=== PATIENT | male | born 1965 | race Caucasian/White ===

== ENCOUNTER 2017-10-19 19:45 | Emergency (ER) | payer OTHER ==
[2017-10-19] MEDS ORDERED: IBUPROFEN 200 MG TABLET PO ONE (19:58)
[2017-10-19] MEDS ORDERED: ACETAMINOPHEN 500 MG TABLET PO ONE (19:58)
--- NOTE | 2017-10-19 20:01 | Emergency Department Record ---
History of Present Illness - General Chief complaint: Flu Like Symptoms Stated complaint: COUGH,ACHES,SORE THROAT Time Seen by Provider: 10/19/17 19:56 Source: Patient Mode of Arrival: Ambulatory Limitations: No limitations - History of Present Illness Initial comments: 52 yo male presents to ED for evaluation of fever, sore throat, and body aches for the past 2 days. Patient denies productive cough symptoms, neck stiffness, nausea, vomiting, or abdominal pain symptoms. Patient denies urinary symptoms. Patient also denies health problems at his baseline. Patient did take Advil cold and sinus early this morning. MD Complaint: Generalized weakness Onset/Timin -: Days(s) Location: Generalized Severity: Mild Quality: Aching Consistency: Constant Improves with: None Worsens with: None - Delight Coma Scale Eye Response: (4) Open spontaneously Motor Response: (6) Obeys commands Verbal Response: (5) Oriented Alisha Total: 15 - Related Data Previous Rx's Medication Instructions Recorded Oseltamivir Phosphate [Tamiflu] 75 mg PO BID #10 capsule 10/19/17 Oseltamivir Phosphate [Tamiflu] 75 mg PO BID #10 capsule 10/19/17 Allergies Allergy/AdvReac Type Severity Reaction Status Date / Time cefuroxime [From Ceftin] Allergy RASH Verified 10/19/17 19:54 Travel Screening - Travel/Exposure Within Last 30 Days Have you traveled within the last 30 days?: No - Travel/Exposure Within Last Year Have you traveled outside the [place] in the last year?: No - Additonal Travel Details Have you been exposed to anyone with a communicable illness?: No - Travel Symptoms Symptom Screening: None Review of Systems Constitutional: Reports: Chills, Fever, Malaise, Weakness. Denies: Night sweats Eyes: Denies: Eye discharge, Eye pain ENT: Reports: Congestion, Throat pain. Denies: Ear pain, Epistaxis Respiratory: Denies: Cough Cardiovascular: Denies: Chest pain, Dyspnea on exertion Endocrine: Denies: Fatigue, Heat or cold intolerance Gastrointestinal: Denies: Abdominal pain, Nausea, Vomiting Genitourinary: Denies: Incontinence, Retention Musculoskeletal: Reports: Myalgia. Denies: Arthralgia, Back pain Skin: Denies: Bruising, Change in color Neurological: Reports: Headache. Denies: Abnormal gait, Confusion, Seizure Psychiatric: Denies: Anxiety Hematological/Lymphatic: Denies: Anemia, Blood Clots Past Medical History - SOCIAL HISTORY Smoking Status: Never smoker Alcohol Use: None Drug Use: None - RESPIRATORY Hx Respiratory Disorders: No - CARDIOVASCULAR Hx Cardio Disorders: No - NEURO Hx Neuro Disorders: No - GI Hx GI Disorders: No - Hx Genitourinary Disorders: No - ENDOCRINE Hx Endocrine Disorders: No - MUSCULOSKELETAL Hx Musculoskeletal Disorders: No - PSYCH Hx Psych Problems: No - HEMATOLOGY/ONCOLOGY Hx Hematology/Oncology Disorders: No Family Medical History Any Significant Family History?: No Physical Exam - General General Appearance: Alert, Oriented x3, Cooperative, Moderate distress Limitations: No limitations - Head Head exam: Atraumatic, Normocephalic, Normal inspection Head exam detail: negative: Abrasion, Contusion, Porras's sign, General tenderness, Hematoma, Laceration - Eye Eye exam: Normal appearance. negative: Conjunctival injection, Periorbital swelling, Periorbital tenderness, Scleral icterus - ENT Ear exam: negative: Auricular hematoma, Auricular trauma Nasal Exam: negative: Active bleeding, Discharge, Dried blood, Foreign body Mouth exam: negative: Drooling, Laceration, Tongue elevation - Neck Neck exam: Normal inspection. negative: Meningismus, Tenderness - Respiratory Respiratory exam: Normal lung sounds bilaterally. negative: Rales, Respiratory distress, Rhonchi, Stridor - Cardiovascular Cardiovascular Exam: Regular rate, Normal rhythm, Normal heart sounds - GI/Abdominal GI/Abdominal exam: Soft. negative: Rebound, Rigid, Tenderness - Rectal Rectal exam: Deferred - exam: Deferred - Extremities Extremities exam: Normal inspection. negative: Pedal edema, Tenderness - Back Back exam: Denies: CVA tenderness (R), CVA tenderness (L) - Neurological Neurological exam: Alert, Normal gait, Oriented X3 - Psychiatric Psychiatric exam: Normal affect, Normal mood - Skin Skin exam: Normal color. negative: Abrasion Type of lesion: negative: abrasion Course Vital Signs 10/19/17 19:50 Temperature 100.2 F H Pulse Rate 97 H Respiratory 20 Rate Blood Pressure 133/84 Pulse Ox 96 - Reevaluation(s) Reevaluation #1: 10/19/17 20:10 Influenza B: Positive Strep: negative Patient was updated on his result, will initiate treatment with Tamiflu with instructions for follow-up with his PCP in 3-5 days. Disposition Disposition: Discharge Clinical Impression: Influenza B Disposition: Home, Self-Care Condition: (2) Stable Instructions: Influenza (ED) Additional Instructions: Return to ED if your symptoms worsen or if you have any concerns. Tamiflu as directed. Follow-up with your four family doctor in 3-5 days as directed. Prescriptions: Oseltamivir Phosphate [Tamiflu] 75 mg PO BID #10 capsule Oseltamivir Phosphate [Tamiflu] 75 mg PO BID #10 capsule Forms: Patient Portal Access Time of Disposition: 20:13 Quality - Quality Measures Quality Measures: N/A - Blood Pressure Screening Does Patient Have Any of the Following: No Blood Pressure Classification: Pre-Hypertensive BP Reading Systolic Measurement: 133 Diastolic Measurement: 84 Screening for High Blood Pressure: < Pre-Hypertensive BP, F/U Documented > [ [id number]] Pre-Hypertensive Follow-up Interventions: Referral to alternative/primary care provider.
[2017-10-19 20:08] LABS: INFLUENZA A NEGATIVE (NEGATIVE); INFLUENZA B POSITIVE (NEGATIVE); STREP A SCREEN NEGATIVE (NEGATIVE)
[2017-10-19] MEDS ORDERED: OSTELTAMIVIR 75 MG CAP PO ONE (20:16)
== END 2017-10-19 20:23 | disposition home or self-care (01) ==
LOC: ER 19:45
DX: J10.1 Influenza due to other identified influenza virus with other respiratory manifestations (principal); R53.1 Weakness
CPT/HCPCS: 87400; 87880; 99282